=== PATIENT | female | born 1950 ===

== ENCOUNTER 2024-06-11 05:45 | Day surgery (SDC) | payer OTHER ==
[~2024-06-11 05:45] MED LIST: CLARITIN10 M1 PO; ECOTRIN81 MG PO; PEPCID AC20 MG PO; PROTONIX40 MG PO; ZESTRIL5 MG PO
[2024-06-11] MEDS ORDERED: POVIDONE-IODINE 118 ML BOTT TOP ONE (06:49)
[2024-06-11] MEDS ORDERED: KETOROLAC TROMETHAMINE 30 MG VIAL IV ONE (08:45)
[2024-06-11] MEDS ORDERED: KETOROLAC TROMETHAMINE 30 MG VIAL ONE (10:33)
[2024-06-15] MEDS ORDERED: POVIDONE-IODINE 118 ML BOTT TOP ONE (06:45)
== END 2024-06-11 12:50 | disposition home or self-care (01) ==
LOC: CIR.AMB 05:45
PROVIDERS: ATTEND Obstetrics & Gynecology
DX: N84.0 Polyp of corpus uteri (principal); D25.0 Submucous leiomyoma of uterus; N95.0 Postmenopausal bleeding; Z88.2 Allergy status to sulfonamides; I10 Essential (primary) hypertension